=== PATIENT | female | born 1945 | race Caucasian/White ===

== ENCOUNTER 2016-11-23 13:06 | Emergency (ER) | payer MEDICARE, BC ==
--- NOTE | 2016-11-23 16:10 | ED Physician Documentation ---
PD HPI UPPER EXT INJURY - Stated complaint Stated Complaint: RT FINGER LAC - History obtained from History obtained from: Patient - History of Present Illness Location: Right, Finger (index) Type of injury: Blunt / blow (she hit it with a hammer, feeling more of a laceration than crush injury per se. Has flap of skin and was bleeding well after injury.) Timing - onset: Today Timing - details: Abrupt onset, Still present Worsened by: Moving, Palpating Associated symptoms: No: Weakness, Numbness, Tingling Similar symptoms before: Has not had sx before Recently seen: Not recently seen Review of Systems Constitutional: denies: Fever Nose: denies: Rhinorrhea / runny nose, Congestion Throat: denies: Sore throat Respiratory: denies: Cough Neurologic: denies: Focal weakness, Numbness, Near syncope PD PAST MEDICAL HISTORY - Past Medical History Cardiovascular: None Respiratory: None Neuro: None Endocrine/Autoimmune: HyPOthyroidism Psych: Other (insomnia) - Present Medications Home Medications: Ambulatory Orders Medication Instructions Recorded Confirmed Acyclovir 200 mg PO BID 11/23/16 11/23/16 Levothyroxine Sodium [Synthroid] 88 mcg PO DAILY 11/23/16 11/23/16 traZODone [Desyrel] 50 mg PO QPM 11/23/16 11/23/16 - Allergies Allergies/Adverse Reactions: Allergies Allergy/AdvReac Type Severity Reaction Status Date / Time levofloxacin [From Levaquin] Allergy Edema Verified 11/23/16 13:22 PD ED PE NORMAL - Vitals Vital signs reviewed: Yes - General General: Alert and oriented X 3, No acute distress, Well developed/nourished - Derm Derm: Normal color, Warm and dry - Extremities Extremities: Other (right index finger with flap lac dorsal DIP area, without FB and does not involve the tendon. Good extension against resistance on exam. ) - Neuro Neuro: No motor deficit, No sensory deficit Results - Vitals Vitals: Oxygen O2 Source Room air Procedures - Laceration (location) rigth index finger DIP area Length in cm: 1.5 Wound type: Curved, Flap, Into subcut fat, Clean Neurovascular status: Sensory intact, Motor intact, Vascular intact Tendon involvement: Tendon intact. No: Tendon Injury Anesthesia: Lidocaine 1% (digital block), Marcaine 0.5% Wound Preparation: Irrigated copiously NS, Wound explored, To the base. No: FB identified Skin layer closure: Nylon, Interrupted, Size #-0 - enter number (4), Sutures - enter # (7) Other: Patient tolerated well, No complications, Neurovascular intact, Dressing applied Complexity: Simple PD MEDICAL DECISION MAKING - ED course Complexity details: considered differential, d/w patient Departure - Departure Disposition: 01 Home, Self Care Clinical Impression: Laceration of right index finger Qualifiers: Encounter type: initial encounter Damage to nail status: without damage Foreign body presence: without foreign body Qualified Code(s): S61.210A - Laceration without foreign body of right index finger without damage to nail, initial encounter Condition: Stable Record reviewed to determine appropriate education?: Yes Instructions: ED Laceration Hand Follow-Up: Sparkle Mcguire PA-C [Primary Care Provider] - Comments: It is okay to wash and shower. Clean off the wound twice a day with soap and water, or peroxide and water. Apply some antibiotic ointment to it to keep it moist. Also to watch for signs of infection such as purulence, redness or increasing pain. Return to your primary care or the ER at the specified time for suture removal. Suture removal in 10 days Discharge Date/Time: 11/23/16 17:15
[2016-11-23 17:20] VITALS: BP 127/81
== END 2016-11-23 17:15 | disposition home or self-care (01) ==
LOC: ED 13:06
DX: S61.210A Laceration without foreign body of right index finger without damage to nail, initial encounter (principal); W22.8XXA Striking against or struck by other objects, initial encounter; Y93.89 Activity, other specified; E03.9 Hypothyroidism, unspecified
CPT/HCPCS: 12001; 99282; 99283

== ENCOUNTER → 2017-01-26 | Outpatient (CLI) | payer MEDICARE, BC ==
[2017-01-26 14:32] LABS: EOSINOPHILS # (AUTO) 0.2 10^3/uL (0.0-0.7); HCT - HEMATOCRIT 38.9 % (37.0-47.0); HGB - HEMOGLOBIN 13.2 g/dL (12.0-16.0); LYMPHOCYTES # (AUTO) 1.5 10^3/uL (1.5-3.5); LYMPHOCYTES % (AUTO) 34.3 %; MEAN CORPUSCULAR HEMOGLOBIN 33.3 pg (27.0-31.0); MEAN CORPUSCULAR HGB CONC 33.9 g/dL (32.0-36.0); MEAN CORPUSCULAR VOLUME 98.2 fL (81.0-99.0); MEAN PLATELET VOLUME 8.4 fL (7.9-10.8); MONOCYTES # (AUTO) 0.4 10^3/uL (0.0-1.0); NEUTROPHILS # (AUTO) 2.2 10^3/uL (1.5-6.6); NEUTROPHILS % (AUTO) 50.7 %; RED BLOOD COUNT 3.96 10^6/uL (4.20-5.40); RED CELL DISTRIBUTION WIDTH 13.3 % (12.0-15.0); UNCORRECTED WHITE BLOOD COUNT 4.4 x10^3/uL; WHITE BLOOD COUNT 4.4 x10^3/uL (4.8-10.8)
[2017-01-26 14:48] LABS: ALBUMIN/GLOBULIN RATIO 1.5 (1.0-2.2); BUN - BLOOD UREA NITROGEN 11 mg/dL (6-20); CALCIUM 9.1 mg/dL (8.5-10.3); CARBON DIOXIDE - CO2 27 mmol/L (21-32); CHLORIDE 101 mmol/L (101-111); CHOL/HDL RATIO 3.3 (<4.4); CHOLESTEROL 197 mg/dL; CREATININE 0.5 mg/dL (0.4-1.0); GFR - MDRD 122 (>89); GLUCOSE 84 mg/dL (70-100); HDL CHOLESTEROL 60 mg/dL; LDL/HDL RATIO 1.8 (<4.4); POTASSIUM 4.1 mmol/L (3.5-5.0); SODIUM 137 mmol/L (135-145); TRIGLYCERIDES 137 mg/dL; VLDL CHOLESTEROL 27 mg/dL
== END ==
LOC: LAB.R 08:09
PROVIDERS: ATTEND Physician Assistant Medical
DX: D64.9 Anemia, unspecified (principal); E78.2 Mixed hyperlipidemia; Z11.59 Encounter for screening for other viral diseases; M15.9 Polyosteoarthritis, unspecified; Z79.899 Other long term (current) drug therapy; E03.9 Hypothyroidism, unspecified; G47.00 Insomnia, unspecified
CPT/HCPCS: 80053; 80061; 84443; 85025; 86803

== ENCOUNTER 2017-10-14 09:30 | Outpatient (CLI) | payer MEDICARE, BC ==
--- NOTE | 2017-10-14 11:36 | XRAY Report ---
Procedure Date: 10/14/2017 Accession Number: [id number] / [id number] Procedure: XR - SI Joints CPT Code: FULL RESULT: EXAM: Lumbar Spine Complete, SI Joints DATE: 10/14/2017 10:00 AM CLINICAL HISTORY: CERVICAL SPINE STENOSIS,LOW BACK PX,CHRONIC COMPARISON: 12/24/2014 TECHNIQUE: 4 views of the lumbar spine and 3 views of the sacroiliac joints. FINDINGS: Alignment: Moderate levoconvex lumbar scoliosis centered at L3 is essentially unchanged. Bones: Five tnz-[id number]-[id number] lumbar vertebral bodies are present. No fractures or bone lesions. Disks: Mild multilevel degenerative changes are most pronounced in the mid lumbar spine. Facets: Mild to moderate facet arthropathy predominantly at L4-L5. Sacroiliac Joints: Unremarkable. Soft Tissues: Normal. The visualized bowel gas pattern is normal. IMPRESSION: Stable levoconvex scoliosis with associated degenerative changes. RADIA
--- NOTE | 2017-10-14 11:36 | XRAY Report ---
Procedure Date: 10/14/2017 Accession Number: [id number] / [id number] Procedure: XR - Lumbar Spine Complete CPT Code: FULL RESULT: EXAM: Lumbar Spine Complete, SI Joints DATE: 10/14/2017 10:00 AM CLINICAL HISTORY: CERVICAL SPINE STENOSIS,LOW BACK PX,CHRONIC COMPARISON: 12/24/2014 TECHNIQUE: 4 views of the lumbar spine and 3 views of the sacroiliac joints. FINDINGS: Alignment: Moderate levoconvex lumbar scoliosis centered at L3 is essentially unchanged. Bones: Five ktv-[id number] lumbar vertebral bodies are present. No fractures or bone lesions. Disks: Mild multilevel degenerative changes are most pronounced in the mid lumbar spine. Facets: Mild to moderate facet arthropathy predominantly at L4-L5. Sacroiliac Joints: Unremarkable. Soft Tissues: Normal. The visualized bowel gas pattern is normal. IMPRESSION: Stable levoconvex scoliosis with associated degenerative changes. RADIA
== END 2017-10-14 09:31 | disposition home or self-care (01) ==
LOC: DI 09:30
PROVIDERS: ATTEND Physician Assistant Medical
DX: M41.86 Other forms of scoliosis, lumbar region (principal); M51.36 Other intervertebral disc degeneration, lumbar region; M48.02 Spinal stenosis, cervical region
CPT/HCPCS: 72110; 72202

== ENCOUNTER 2018-01-25 07:19 | Outpatient (CLI) | payer MEDICARE, BC ==
[2018-01-25 13:34] LABS: BASOPHILS % (AUTO) 0.3 %; EOSINOPHILS # (AUTO) 0.1 10^3/uL (0.0-0.7); EOSINOPHILS % (AUTO) 2.5 %; HGB - HEMOGLOBIN 12.5 g/dL (12.0-16.0); LYMPHOCYTES # (AUTO) 1.8 10^3/uL (1.5-3.5); MEAN CORPUSCULAR HGB CONC 34.7 g/dL (32.0-36.0); MEAN CORPUSCULAR VOLUME 98.1 fL (81.0-99.0); MEAN PLATELET VOLUME 8.3 fL (7.9-10.8); MONOCYTES # (AUTO) 0.4 10^3/uL (0.0-1.0); MONOCYTES % (AUTO) 8.6 %; NEUTROPHILS # (AUTO) 2.3 10^3/uL (1.5-6.6); NEUTROPHILS % (AUTO) 49.6 %; PLT - PLATELET COUNT 251 10^3/uL (130-450); RED BLOOD COUNT 3.69 10^6/uL (4.20-5.40); RED CELL DISTRIBUTION WIDTH 13.3 % (12.0-15.0); WHITE BLOOD COUNT 4.6 x10^3/uL (4.8-10.8)
[2018-01-25 14:11] LABS: ALBUMIN/GLOBULIN RATIO 1.5 (1.0-2.2); ALKALINE PHOSPHATASE 60 IU/L (42-121); ALT ALANINE AMINOTRANSFERASE 10 IU/L (10-60); AST ASPARTATE AMINOTRANSFERASE 18 IU/L (10-42); BILIRUBIN,TOTAL 0.9 mg/dL (0.2-1.0); BUN - BLOOD UREA NITROGEN 11 mg/dL (6-20); CALCIUM 8.8 mg/dL (8.5-10.3); CARBON DIOXIDE - CO2 29 mmol/L (21-32); CHLORIDE 102 mmol/L (101-111); CHOL/HDL RATIO 3.8 (<4.4); CHOLESTEROL 221 mg/dL; CREATININE 0.6 mg/dL (0.4-1.0); GFR - MDRD 99 (>89); GLUCOSE 97 mg/dL (70-100); HDL CHOLESTEROL 58 mg/dL; LDL CHOLESTEROL,CALCULATED 135 mg/dL; LDL/HDL RATIO 2.3 (<4.4); SODIUM 136 mmol/L (135-145); TOTAL PROTEIN 6.6 g/dL (6.7-8.2); VLDL CHOLESTEROL 28 mg/dL
== END 2018-01-25 07:20 | disposition home or self-care (01) ==
LOC: LAB.F 07:19
PROVIDERS: ATTEND Physician Assistant Medical
DX: Z79.899 Other long term (current) drug therapy (principal); M54.5 Low back pain; G47.00 Insomnia, unspecified; M15.9 Polyosteoarthritis, unspecified; E03.9 Hypothyroidism, unspecified; E78.2 Mixed hyperlipidemia
CPT/HCPCS: 36415; 80053; 80061; 83721; 84443; 85025

== ENCOUNTER 2018-04-08 11:07 | Outpatient (CLI) | payer MEDICARE, BC ==
[2018-04-08 17:23] LABS: BASOPHILS % (AUTO) 0.6 %; EOSINOPHILS # (AUTO) 0.1 10^3/uL (0.0-0.7); EOSINOPHILS % (AUTO) 1.7 %; HGB - HEMOGLOBIN 12.4 g/dL (12.0-16.0); LYMPHOCYTES % (AUTO) 30.5 %; MEAN CORPUSCULAR VOLUME 100.3 fL (81.0-99.0); MEAN PLATELET VOLUME 8.6 fL (7.9-10.8); MONOCYTES # (AUTO) 0.6 10^3/uL (0.0-1.0); MONOCYTES % (AUTO) 9.4 %; NEUTROPHILS # (AUTO) 3.8 10^3/uL (1.5-6.6); NEUTROPHILS % (AUTO) 57.8 %; PLT - PLATELET COUNT 261 10^3/uL (130-450); RED BLOOD COUNT 3.74 10^6/uL (4.20-5.40); RED CELL DISTRIBUTION WIDTH 13.5 % (12.0-15.0); WHITE BLOOD COUNT 6.7 x10^3/uL (4.8-10.8)
== END 2018-04-08 11:08 | disposition home or self-care (01) ==
LOC: LAB.F 11:07
PROVIDERS: ATTEND Physician Assistant Medical
DX: Z79.899 Other long term (current) drug therapy (principal)
CPT/HCPCS: 36415; 85025

== ENCOUNTER 2018-07-11 09:44 | Outpatient (CLI) | payer MEDICARE, BC ==
--- NOTE | 2018-07-11 11:42 | Mammography Report ---
Reason: ENCOUNTER FOR SCREENING MAMMOGRAM FOR MALIGNANT NE Procedure Date: 07/11/2018 Accession Number: [id number] / [id number] Procedure: NATHANIEL - Screening Mammo w/Gary CPT Code: FULL RESULT: EXAM: Screening Mammo w/Gary DATE: 07/11/2018 11:03 AM CLINICAL HISTORY: Screening examination. History of left breast excisional biopsy with benign pathology. TECHNIQUE: (B) - Bilateral CC and MLO views were obtained. COMPARISON: 01/24/2016 through 04/18/2010. PARENCHYMAL PATTERN: (VD) - The breast(s) demonstrate(s) extremely dense parenchyma, limiting the sensitivity of mammography. FINDINGS: Postsurgical changes are noted in the left breast, essentially unchanged. There are no suspicious masses, calcifications, or areas of distortion. IMPRESSION: Benign findings. BI-RADS category 2. RECOMMENDATION: (ANNUAL) - Recommend routine annual screening mammography. BI-RADS CATEGORY: (2) - Benign Findings. STANDARD QUALIFYING STATEMENTS: 1. This examination was not reviewed with the aid of Computer-Aided Detection (CAD). 2. A negative or benign imaging report should not preclude biopsy if clinically suspicious findings are present. 3. Dense breasts may obscure an underlying neoplasm. 4. This examination was reviewed with the aid of 3D breast imaging (tomosynthesis).
== END 2018-07-11 09:45 | disposition home or self-care (01) ==
LOC: DI 09:44
PROVIDERS: ATTEND Registered Nurse
DX: Z12.31 Encounter for screening mammogram for malignant neoplasm of breast (principal)
CPT/HCPCS: 77063; 77067

== ENCOUNTER 2020-11-26 16:25 | Outpatient (CLI) | payer MEDICARE, OTHER ==
--- NOTE | 2020-11-26 16:59 | XRAY Report ---
PROCEDURE: Chest 2 View X-Ray INDICATIONS: COUGH TECHNIQUE: 2 views of the chest. COMPARISON: Chest radiographs 12/02/2011. FINDINGS: Surgical changes and devices: None. Lungs and pleura: No pleural effusions or pneumothorax. Lungs are clear. Mediastinum: Mediastinal contours are normal. Heart size is normal. Bones and chest wall: No suspicious bony abnormalities. Soft tissues appear unremarkable. IMPRESSION: No acute cardiopulmonary abnormality. Reviewed by: Reagan Guerra MD on 11/26/2020 4:58 PM PDT Approved by: Reagan Guerra MD on 11/26/2020 4:58 PM PDT Station ID: [id number]
== END 2020-11-26 16:26 | disposition home or self-care (01) ==
LOC: DI.S 16:25
PROVIDERS: ATTEND Registered Nurse
DX: R05 Cough (principal)

== ENCOUNTER 2022-04-21 10:45 | Outpatient (CLI) | payer MEDICARE, OTHER ==
--- NOTE | 2022-04-21 15:28 | DEXA Report ---
PROCEDURE: Dexa Spine and/or Hip INDICATIONS: POST MENOPAUSAL TECHNIQUE: Dual energy x-ray absorptiometry (DXA) was performed on a [employer] System. Regions measur ed are the AP Spine, femoral neck, and if needed forearm. COMPARISON: 12/24/2014 FINDINGS: Lumbar Spine: Bone Mineral Density 1.206 g/cm/cm,T score 0.2, previously -0.5 Left Femoral Neck: Bone Mineral Density 0.755 g/cm/cm, T score -2.0, previously -1.5 Left Hip: Bone Mineral Density 0.749 g/cm/cm,T score -2.1, previously -0.8 (T score greater or equal to -1.0: NORMAL) (T score from -1.1 to -2.4: OSTEOPENIA) (T score less than or equal to -2.5 to: OSTEOPOROSIS) Impression: Worsening osteopenia involving the left femoral neck and left hip. Improving lumbar spine bone mineral density Patients with diagnosis of osteoporosis or osteopenia should have regular bone mineral density assess ment. For those eligible for Medicare, routine testing is allowed once every 2 years. Testing frequ ency can be increased for patients who have rapidly progressing disease or for those who are receivin g medical therapy to restore bone mass. Reviewed by: Luis Cunningham MD on 04/21/2022 2:26 PM [place] Approved by: Luis Cunningham MD on 04/21/2022 2:26 PM [place] Station ID: [id number]
== END 2022-04-21 10:46 | disposition home or self-care (01) ==
LOC: DI 10:45
PROVIDERS: ATTEND Registered Nurse
DX: Z78.0 Asymptomatic menopausal state (principal); M85.89 Other specified disorders of bone density and structure, multiple sites

== ENCOUNTER 2022-04-21 10:46 | Outpatient (CLI) | payer MEDICARE, OTHER ==
--- NOTE | 2022-04-22 11:37 | Mammography Report ---
BILATERAL DIGITAL SCREENING MAMMOGRAM 3D/2D: 04/21/2022 CLINICAL: Routine screening. Comparison is made to exams dated: 07/11/2018 mammogram, 01/24/2016 mammogram, 01/01/2014 mammogram, a nd 06/22/2012 mammogram - [facility]. Both breasts are extremely dense, which lowers the sensitivity of mammography (category d />75% gland ular tissue). No significant masses, calcifications, or other findings are seen in either breast. There has been no significant interval change. IMPRESSION: NEGATIVE There is no mammographic evidence of malignancy. A 1 year screening mammogram is recommended. Based on the Tyrer Cuzick model (a risk assessment model) the patients lifetime risk is 7.6% and her 10 year risk is 6.9%. According to the ACR, ACS, and NCCN guidelines, an annual breast MRI exam ling g with mammogram is recommended if the patients lifetime risk is 20% or greater. This exam was interpreted at Station ID: [id number]. NOTE: For mammograms, a report in lay terms will be sent to the patient. Approximately 15% of breast malignancies will not be visualized mammographically. In the management of a palpable breast mass, a negative mammogram must not discourage biopsy of a clinically suspicious lesion. Electronically Signed By: Ld Hamilton M.D., jr/padilla:04/21/2022 13:43:25 ACR BI-RADS Category 1: Negative 3341F PARENCHYMAL PATTERN: (VD) - The breast(s) demonstrate(s) extremely dense parenchyma, limiting the sen sitivity of mammography. BI-RADS CATEGORY: (1) - 1 RECOMMENDATION: (ANNUAL) - Recommend routine annual screening mammography. [id number] 1 year screening LATERALITY: (B)
== END 2022-04-21 10:47 | disposition home or self-care (01) ==
LOC: DI 10:46
PROVIDERS: ATTEND Registered Nurse
DX: Z12.31 Encounter for screening mammogram for malignant neoplasm of breast (principal)

== ENCOUNTER 2022-07-01 08:57 | Day surgery (SDC) | payer MEDICARE, OTHER ==
[2022-07-01] MEDS ORDERED: LACTATED RINGERS 1,000 ML IV ONE ×2 (09:17→11:44)
[2022-07-01] MEDS ORDERED: PROPOFOL 500 MG/50 ML 500 MG/50 ML VIAL ONE (10:11)
--- NOTE | 2022-07-01 10:49 | ANESTHESIA ---
Pre-Anesthesia VS, & Labs - Diagnosis screening - Procedure colonoscopy Vital Signs: Temp Pulse Resp BP Pulse Ox O2 Flow Rate 36.5 C 60 18 144/115 H 100 07/01/22 09:01 07/01/22 09:01 07/01/22 09:01 07/01/22 09:01 07/01/22 09:01 Height: 5 ft 5 in Weight (kg): 60 kg Body Mass Index: 22.0 BMI Classification: Normal - NPO >8 hours Last Fluid Intake: am prep - Is Patient ?: No - Lab Results Lab results reviewed: Yes Home Medications and Allergies Home Medications: Ambulatory Orders Famotidine 40 mg PO DAILY 06/30/22 Acyclovir 200 mg PO BID 11/23/16 Levothyroxine Sodium [Synthroid] 88 mcg PO DAILY 11/23/16 Famotidine 40 mg PO DAILY 06/30/22 Allergies/Adverse Reactions: Allergies Allergy/AdvReac Type Severity Reaction Status Date / Time levofloxacin [From Levaquin] Allergy Edema Verified 07/01/22 09:25 Anes History & Medical History - Anesthetic History Anesthesia Complications: reports: No previous complications Family history of Anesthesia Complications: Denies Family history of Malignant Hyperthermia: Denies - Medical History Cardiovascular: reports: None Pulmonary: reports: None Endocrine/Autoimmune: reports: HyPOthyroidism Smoking Status: Never smoker - Surgical History General: reports: Colonoscopy Exam General: Alert, Oriented x3, Cooperative Dental: WNL Mouth Openin Fingerbreadth Neck Mobility: Normal Mallampati classification: II Thyromental Distance: 4-6 cm Respiratory: Lungs clear, Normal breath sounds, No respiratory distress Cardiovascular: Regular rate Neurological: Normal speech Mental/Cognitive Status: Alert/Oriented X3, Normal for patient Cognitive Status: Within normal limits Plan Anesthesia Type: Total IV Consent for Procedure(s) Verified and Reviewed: Yes Code Status: Attempt Resuscitation ASA classification: 2-Mild systemic disease Is this case an emergency?: No
[2022-07-01] MEDS ORDERED: MIDAZOLAM 2 MG/2 ML VIAL ONE (10:57)
[2022-07-01] MEDS ORDERED: GLYCOPYRROLATE 1 MG/5 ML VIAL ONE (11:20)
[2022-07-01 12:00] VITALS: BP 123/76
--- NOTE | 2022-07-01 12:19 | ANESTHESIA POST OP EVALUATION ---
Anesthesia Post Eval - Post Anesthesia Eval Vitals: Last Vital Signs Temp 36.2 C L 07/01/22 12:00 Pulse 78 07/01/22 12:00 Resp 16 07/01/22 12:00 BP 123/76 07/01/22 12:00 Pulse Ox 100 07/01/22 12:00 O2 Flow Rate CV Function Including HR & BP: Stable Pain Control: Satisfactory Nausea & Vomiting: Negative Mental Status: Baseline Respiratory Status: Airway Patent Hydration Status: Satisfactory Anesthesia Complications: None
== END 2022-07-01 08:58 | disposition home or self-care (01) ==
LOC: SDS 08:57
PROVIDERS: ATTEND Surgery
DX: K59.09 Other constipation (principal); R10.12 Left upper quadrant pain; K64.1 Second degree hemorrhoids; K64.2 Third degree hemorrhoids; E03.9 Hypothyroidism, unspecified; Z87.891 Personal history of nicotine dependence
CPT/HCPCS: 45378; J7120

== ENCOUNTER 2023-08-05 09:04 | Outpatient (CLI) | payer MEDICARE, OTHER ==
--- NOTE | 2023-08-05 09:38 | Sleep Patient Instructions ---
Sleep Center Visit Summary - Patient Visit Information Reason for Visit: Initial consult for evaluation of sleep disordered breathing and other sleep issues. - Patient Instructions Instructions Attached: Sleep Study Additional Instructions: You will be completing a sleep study, either an in-lab polysomnography (PSG) or home sleep study (HST). You will follow-up in the sleep care office after the sleep study is completed to hear the results and talk about therapy, if needed. You will be called by our office staff to schedule this appointment, but you may contact us with any questions. - Clinic Information Contact: [facility] [address] [place] [address] [email or web address] T: [phone]
--- NOTE | 2023-08-05 09:40 | SLEEP CARE CONSULTATION ---
Information from patient questionnaire entered by Mara Cotter. I have reviewed and concur with the information entered by Mara Cotter. This document represents the service I personally performed and the decisions made by me, Hiwot Khan ARNP. History of Present Illness Service Date and Time: 08/05/2023 0904 Reason for Visit: New patient Chief Complaint: reports: Insomnia, Frequent awakenings at night, Other (LOW O2 STAT READINGS ) Date of Onset: ONGOING Usual bedtime: 2200 Time it takes to fall asleep: RIGHT AWAY Snores at night: Yes Observed to quit breathing while asleep: No Sleeps alone due to snoring: No Number of times waking at night: 2-3 Reasons for waking at night: reports: Pain, Bathroom, Other (UNKNOWN) Toss, Turn, or Twitch while sleeping: Yes Recalls having dreams: Yes Usually gets out of bed at: 1856-1116 Feels refreshed in the morning: No Morning headache: No Sleepy or fatigued during the day: Yes Ever fallen asleep while driving: Yes Takes day naps: No Dreams during day naps: Yes Prior sleep studies: No Additional HPI information: I had the pleasure of seeing PORTIA ROLON today regarding the possibility of her having a sleep disorder. Her current complaints are insomnia, frequent night awakenings and low oxygen saturations. She was diagnosed with Meniere's disease and vertigo. She has been using an Apple watch and has noted that her watch is saying her oxygen goes down under 90% about 3-4 nights a week. A pulse oximetry test was done and showed some desaturations of her oxygen at night suggesting possible sleep disordered breathing but her oxygen did not go under 90%. Her provider sent her here for further evaluation. The patient tells me that she normally goes to bed around 10 pm, and it takes her approximately few minutes to fall asleep. She has been told that she snores loudly and irregularly at night. She has not been observed to stop breathing in her sleep. Her bed partner can still sleep in the same bed. She can recall waking up on the average of 2-3 times during the night. Most of the time she wakes up because of bathroom, pain or numbness in arms. She can take an hour to go back to sleep. She has not awakened for her own snoring, choking, and having to gasp for air. There is a lot of tossing and turning in her sleep. Generally she can recall having dreams. She usually wakes up at 0530- 0600 and does not feel refreshed. She usually does not have a morning headache. During the day she complains of feeling sleepy and fatigued. She has fallen asleep while driving and has gone out of the nichelle, no accident. She usually does not take naps during the day. She reports having impaired concentration during the day. There is no somniloquy (sleep talking) or somnambulism (sleep walking). - Parasomnia Symptoms Ever been unable to move upon waking from sleep: No Walks in sleep: No Talks in sleep: No Ever acted out dreams in sleep: No Ever felt weak in the knees when startled or emotional: No Bothered by creepy, crawly, restless sensations in legs: Yes Problems with memory or concentration: Yes (brain sharp most of time) Subjective Initial Bejou Sleepiness Scale score: 11 (07/19/23) Past Medical History Past Medical History: reports: Arthritis, Arrythmia (electric dysfunction), Hypothyroidism, GERD, Other (CERVICAL, STERNOSIS, MENIERS SYNDROME RIGHT SIDED, CRHONIC CONSTIPATION ) Social History The patient's occupation is a RE. Patient is Domestic Partner and lives in [place]. Have you smoked in the past 12 months: Yes Alcohol use: No Caffeine use: No Family History Family history of sleep disordered breathing: No Allergies and Home Medications Known drug allergies: Yes (LEVAQUIN) Drug allergies reviewed: No Home medication list reviewed: No (as listed) Allergy and home medication list: Allergies levofloxacin [From Levaquin] Allergy (Verified 08/03/23 08:06) Edema Home Medications Medication Instructions Recorded Confirmed Last Taken Type Acyclovir 200 mg PO BID 11/23/16 08/05/23 06/30/22 History Levothyroxine Sodium [Synthroid] 88 mcg PO DAILY 11/23/16 08/05/23 06/30/22 History Famotidine 40 mg PO DAILY 06/30/22 08/05/23 06/30/22 History Ascorbic Acid/Ascorbate Sodium See Rx Instructions .ROUTE .COMPLEX 08/03/23 0 08/05/23 Unknown History [Vitamin C 500 mg Tablet Chew] Nortriptyline [Pamelor] See Rx Instructions .ROUTE .COMPLEX 08/03/23 08/05/23 Unknown History Diller-3 Fatty Acids [Diller-3] See Rx Instructions .ROUTE .COMPLEX 08/03/23 08/05/23 Unknown History Betahistine, drug trial for vertigo Review of Systems Weight loss over past 5 years: 3-4 Cardiovascular: reports: palpitations, irregular heart rate or pulse. denies: high blood pressure Respiratory: reports: wheeze, sputum production Gastrointestinal: reports: nausea, vomitting Neurological: reports: headaches Psychiatric: denies: anxiety, depression Ear/Nose/Throat: reports: nasal congestion, dry mouth/throat, hoarseness, wisdom teeth removed. denies: tonsillectomy Endocrine: reports: thyroid disease, too hot or cold Musculoskeletal: reports: neck pain, back pain Immunologic: reports: sneezing, itching, allergies to food or environment Physical Exam Vital signs obtained and entered by: MARA Lorenzo MA Blood Pressure: 140/86 (RIGHT ARM) Cuff size: regular Heart Rate: 75 O2 Saturation: 99 Height: 5 ft 5 in Weight: 132 lb 6.4 oz Body Mass Index: 22.0 BMI Classification: Normal Neck circumference: 12 Mouth and throat: narrow oropharynx Soft palate: normal Hard palate: normal Uvula: normal Uvula visualization: 100% Mallampati Class I Tongue: normal in size Tonsils: small Neck: normal w/o lymphadenopathy or thyromegaly Heart: regular rate and rhythm Lungs: clear bilaterally Impression and Plan 1. Suspected Obstructive Sleep Apnea-Hypopnea Syndrome, as suggested by a history of irregular snoring, frequent awakening during the night, unrefreshed sleep, cognitive impairment, and excessive daytime sleepiness. Narrow oropharynx and obesity are common predisposing factors for obstructive sleep apnea-hypopnea syndrome. I recommend proceeding to polysomnography to confirm the diagnosis and to assess severity. If the patient has significant sleep disordered breathing, a manual CPAP titration study will also be performed to find the optimal treatment pressure. I informed the patient of what the sleep studies involve and after some discussion, obtained agreement to proceed. The pathophysiology of obstructive sleep apnea-hypopnea syndrome was discussed with the patient and health risks of cardiovascular and cerebrovascular disease if not treated. Risks of drowsy driving discussed in detail and patient advised to avoid long distance driving and to pulling unit floorhand at the first sign of drowsiness. Patient agreed to plan. * Schedule polysomnography * Avoid long distance driving or driving when feeling sleepy. * Avoid alcohol, sedative and muscle relaxant around bedtime. * Review instructions provided by trained office staff on how to prepare for the sleep study. * Return for follow-up after sleep study completed. Plan: PSG and follow up Visit Type: In Office Time Spent with Patient (minutes): 30 Provider Statement: I spent 100% of the Face to Face Visit with the patient with greater than 50% spent counseling the patient and coordination of care.
[2023-08-05 09:41] VITALS: BP 140/86; O2SAT 99
== END 2023-08-05 09:05 | disposition home or self-care (01) ==
LOC: SC 09:04
PROVIDERS: ATTEND Nurse Practitioner Family
DX: G47.00 Insomnia, unspecified (principal); G47.8 Other sleep disorders; R06.83 Snoring; R53.83 Other fatigue; R41.89 Other symptoms and signs involving cognitive functions and awareness; I49.9 Cardiac arrhythmia, unspecified
CPT/HCPCS: 99203; G0463; 99212

== ENCOUNTER 2023-09-07 19:39 | Outpatient (CLI) | payer MEDICARE, OTHER | END 2023-09-07 19:40 | disposition home or self-care (01) | LOC: SC 19:39 | PROVIDERS: ATTEND Nurse Practitioner Family | DX: G47.10 Hypersomnia, unspecified (principal); R53.83 Other fatigue; G47.8 Other sleep disorders; R06.83 Snoring; I49.9 Cardiac arrhythmia, unspecified | CPT/HCPCS: 95810 ==

== ENCOUNTER 2023-10-06 10:50 | Outpatient (CLI) | payer MEDICARE, OTHER ==
--- NOTE | 2023-10-06 10:01 | SLEEP CARE CONSULTATION ---
Information from patient questionnaire entered by Mara Cotter. I have reviewed and concur with the information entered by Mara Cotter. This document represents the service I personally performed and the decisions made by , Hiwot Khan ARNP. History of Present Illness Service Date and Time: 10/06/2023 1000 Initial [place] Sleepiness Scale score: 11 (07/19/23) Current [place] Sleepiness Scale score: 7 (10/06/23) Additional HPI information: PORTIA ROLON returns via video appointment for follow up and results of the recently performed polysomnography done on 09/07/2023. The patient was informed of the following findings: No significant sleep disordered breathing with an average AHI of 1.8 and britt oxygen saturation of 89%. I explained the pathophysiology behind obstructive sleep apnea. Patient does not have sleep apnea and was advised how weight gain could increase the risk of developing sleep apnea in the future. Patient has light snoring. Patient instructed to contact PCP for referral. Snoring can also be treated with an oral appliance from a dentist. Advised to check insurance coverage. In addition, an ENT evaluation can be do to see if other treatment is indicated. Patient does not drink alcohol. Patient was cautioned about risks of drowsy driving until sleepiness symptoms resolve. Patient denies drowsy driving. Sleep Study - Results Prior sleep studies: No Polysomnography/Home Sleep Study results: IMPRESSION: The quality of the study is good. The patient had minimally reduced sleep efficiency. The sleep architecture was abnormal for sleep fragmentation and reduced amount of time spent in REM and slow wave sleep (N3). Respiratory monitoring showed no significant sleep disordered breathing (AHI = 1.8) or hypoxia (britt oxygen saturation of 89%). The few respiratory events occurred almost exclusively during supine REM sleep (supine AHI = 3.8; non-supine = 0.00). Snore was infrequent and light in intens ity. There was no significant periodic leg movement of sleep. Cardiac rhythm was normal sinus rhythm without significant arrhythmia. No abnormal behavior (parasomnia) observed during the night. Allergies and Home Medications Known drug allergies: Yes (as listed) Drug allergies reviewed: Yes Home medication list reviewed: Yes (no changes) Allergy and home medication list: Allergies levofloxacin [From Levaquin] Allergy (Verified 10/06/23 09:43) Edema Review of Systems Review of systems same as previous: Yes (NO CHANGE) Physical Exam Vital signs obtained and entered by: MARA Lorenzo MA Height: 5 ft 5.5 in (PER PT) Weight: 132 lb (PER PT) Body Mass Index: 21.6 BMI Classification: Normal Impression and Plan 1. Snoring but no significant sleep disordered breathing. An oral appliance can also be used for snoring. This would require a dental consultation. Patient cautioned not to use other online appliances as can cause bite issues.. Patient is advised to check if insurance will cover. An ENT consult can also be helpful to determine if any other treatment is an option. * Maintain healthy weight * Return as needed for follow up. Counseling Topics: Sleeping position Follow up with Sleep Care in: as needed Visit Type: Telehealth Video Video Type: Doximity Patient Location: Car Location of Provider: Office Patient agrees and consents to this telehealth visit type: Yes Patient agrees to have their insurance billed: Yes Time Spent with Patient (minutes): 15 Provider Statement: I spent 100% of the Telehealth Video Call with the patient with greater than 50% spent counseling the patient and coordination of care.
== END 2023-10-06 10:51 | disposition home or self-care (01) ==
LOC: SC 10:50
PROVIDERS: ATTEND Nurse Practitioner Family
DX: R06.83 Snoring (principal)